=== PATIENT | male | born 1980 | race Caucasian/White ===

== ENCOUNTER → 2016-08-11 | Outpatient (CLI) | payer BC ==
[~2016-08-11] MED LIST: ONDA4TAB7 SL
[2016-08-11 13:10] LABS: ALB/GLOB RATIO 1.2 (0.9-2); ALKALINE PHOSPHATASE 85 U/L (45-117); ALT/SGPT 34 U/L (12-78); AST/SGOT 24 U/L (15-37); BLOOD UREA NITROGEN 17 mg/dl (7-18); BUN/CREATININE RATIO 18.3 (10-20); CARBON DIOXIDE 28 mmol/L (21-32); CHLORIDE 107 mmol/L (98-107); CHOLESTEROL 217 mg/dl (0-200); CHOLESTEROL/HDL RATIO 3.3; CREATININE 0.94 mg/dl (0.60-1.40); GLUCOSE 109 mg/dl (70-99); HDL CHOLESTEROL 66 mg/dl; POTASSIUM 3.5 mmol/L (3.5-5.1); SODIUM 142 mmol/L (136-145)
[2016-08-11 14:08] LABS: LDL CHOLESTEROL CALCULATED 134 mg/dl; TRIGLYCERIDES 84 mg/dl (0-150); VERY LOW DENSITY LIPOPROT CALC 17 mg/dl
== END | disposition home or self-care (01) ==
LOC: C.LABPVFM 07:33
PROVIDERS: ATTEND Neuromusculoskeletal Medicine & OMM
DX: Z00.00 Encounter for general adult medical examination without abnormal findings (principal)

== ENCOUNTER → 2016-11-11 | Outpatient (CLI) | payer BC | END | disposition home or self-care (01) | LOC: C.PATHSPEC 17:22 | PROVIDERS: ATTEND Urology | DX: Z30.2 Encounter for sterilization (principal) ==

== ENCOUNTER → 2017-02-08 | Outpatient (CLI) | payer BC ==
--- NOTE | 2017-02-08 13:51 | DIAGNOSTIC IMAGING REPORT ---
RIGHT FIRST TOE 3 VIEWS CLINICAL HISTORY: Toe injury. FINDINGS: 3 views of the right first toe are obtained. No prior studies are available for comparison at the time of dictation. The skeletal structures are well mineralized. There is a tiny avulsion fracture at the base of the first distal phalanx, best seen on the oblique view. Mild overlying soft tissue edema is noted. No additional fracture is seen. The joint spaces of the toe are maintained. IMPRESSION: There is a tiny avulsion fracture at the base of the first distal phalanx. Electronically signed by: Nnamdi Jean-Baptiste M.D. 02/08/2017 1:49 PM Dictated Date/Time: 02/08/2017 1:49 PM
== END | disposition home or self-care (01) ==
LOC: C.RADPV 13:21
PROVIDERS: ATTEND Family Medicine
DX: S92.421A Displaced fracture of distal phalanx of right great toe, initial encounter for closed fracture (principal); X58.XXXA Exposure to other specified factors, initial encounter

== ENCOUNTER → 2017-11-28 | Outpatient (CLI) | payer OTHER ==
--- NOTE | 2017-11-28 13:51 | DIAGNOSTIC IMAGING REPORT ---
RIGHT HAND 3 VIEWS CLINICAL HISTORY: Third finger injury. FINDINGS: 3 views of the right hand are obtained. No prior studies are available for comparison at the time of dictation. The skeletal structures are well mineralized. There is no radiographic evidence of acute fracture. The joint spaces of the hand are maintained. Dorsal soft tissue swelling is noted. IMPRESSION: Dorsal soft tissue swelling with no radiographic evidence of acute fracture. Electronically signed by: Nnamdi Jean-Baptiste M.D. 11/28/2017 1:50 PM Dictated Date/Time: 11/28/2017 1:48 PM
== END | disposition home or self-care (01) ==
LOC: C.RAD1850 13:32
PROVIDERS: ATTEND Nurse Practitioner Family
DX: S69.90XA Unspecified injury of unspecified wrist, hand and finger(s), initial encounter (principal); X58.XXXA Exposure to other specified factors, initial encounter